=== PATIENT | female | born 1965 | race Caucasian/White ===

== ENCOUNTER 2021-01-29 12:51 | Emergency (ER) | payer OTHER ==
[~2021-01-29] VITALS: Ht 165.1 cm; Wt 50.0 kg
[2021-01-29] MEDS ORDERED: IV NORMAL SALINE 1,000ML 1,000 ML IV ONE (13:30)
--- NOTE | 2021-01-29 13:39 | PHYS DOC ---
General Adult EDM: Chief Complaint: Body aches HPI: HPI: 55-year-old female presents emergency room with body aches, fatigue, and COVID- 19 exposure. Patient is not vaccinated. She came here from [place] and she has been around her uncle who just tested positive for COVID-19. Last 2 days, the patient is felt general fatigue, malaise, diffuse body aches. She feels like she might have had a fever, but has not measured one. She denies shortness of breath. She has an intermittent cough. She has had some nausea and vomiting. Review of Systems: Review of Systems: Constitutional: Fever, body aches, fatigue. Eyes: Denies change in visual acuity HENT: Denies nasal congestion or sore throat Respiratory: Cough without significant shortness of breath Cardiovascular: Denies chest pain or edema GI: Denies abdominal pain, nausea, vomiting, bloody stools or diarrhea : Denies dysuria Musculoskeletal: Denies back pain or joint pain Integument: Denies rash Neurologic: Denies headache, focal weakness or sensory changes Endocrine: Denies polyuria or polydipsia Lymphatic: Denies swollen glands Psychiatric: Denies depression or anxiety Current Medications: Current Meds: Current Medications Medications (Trade) Dose Ordered Sig/Oskar Start Time Stop Time Status Last Admin Dose Admin Sodium Chloride 1,000 ml @ 1,000 mls/hr 1X ONCE 01/29/21 13:30 01/29/21 14:29 UNV Physical Exam: PE: Constitutional: Well developed, well nourished, no acute distress, thin, non- toxic appearance. [] HENT: Normocephalic, atraumatic, bilateral external ears normal, oropharynx moist, no oral exudates, nose normal. [] Eyes: PERRLA, EOMI, conjunctiva normal, no discharge. [] Neck: Normal range of motion, no tenderness, supple, no stridor. [] Cardiovascular: Heart rate regular rhythm, no murmur [] Lungs & Thorax: Bilateral breath sounds clear to auscultation [] Abdomen: Bowel sounds normal, soft, no tenderness, no masses, no pulsatile masses. [] Skin: Warm, dry, no erythema, no rash. [] Back: No tenderness, no CVA tenderness. [] Extremities: No tenderness, no cyanosis, no clubbing, ROM intact, no edema. [] Neurologic: Alert and oriented X 3, normal motor function, normal sensory function, no focal deficits noted. [] Psychologic: Affect normal, judgement normal, mood normal. [] EKG: EKG: [] Radiology/Procedures: Radiology/Procedures: [] Impressions: XR CHEST 1V History: Reason: fever, possible COVID / Spl. Instructions: / History: Comparison: None. Findings: Subtle ill-defined mid and bibasilar opacities. Hyperinflation. No consolidation or pleural effusion. No pneumothorax. Normal heart size. Impression: 1. Subtle ill-defined mid and bibasilar opacities, may represent atelectasis although can be seen with viral pneumonia. Electronically signed by: Emerson Randall DO (01/29/2021 1:55 PM) [id number] DICTATED AND SIGNED BY: EMERSON RANDALL DO DATE: 01/29/21 1353 CC: SRAVAN FARRAR DO; PCP,UNKNOWN ~MTH0 0 Heart Score: C/O Chest Pain: N/A Risk Factors: Risk Factors: DM, Current or recent (<one month) smoker, HTN, HLP, family history of CAD, obesity. Risk Scores: Score 0 - 3: 2.5% MACE over next 6 weeks - Discharge Home Score 4 - 6: 20.3% MACE over next 6 weeks - Admit for Clinical Observation Score 7 - 10: 72.7% MACE over next 6 weeks - Early Invasive Strategies Course & Med Decision Making: Course & Med Decision Making Pertinent Labs and Imaging studies reviewed. (See chart for details) The patient's symptoms are consistent with COVID-19. We have swabbed her but the test will not come back for 24 to 72 hours. We will treat her as though she is positive for Covid. Her chest x-ray shows possible viral pneumonia. See official read for more details. The patient's labs are unremarkable. Her urinalysis is negative for infection. The patient has been able to maintain normal O2 sats on room air. I do not believe she requires admission at this time. I have provided her Covid precautions and instructions. If her condition worsens, she will return to the emergency room. She is stable for discharge at this time. [] Dragon Disclaimer: Dragmoshe Disclaimer: This electronic medical record was generated, in whole or in part, using a voice recognition dictation system. Departure Departure: Impression: Primary Impression: COVID-19 Disposition: 01 HOME / SELF CARE / HOMELESS Condition: STABLE Referrals: PCP,UNKNOWN (PCP) Additional Instructions: You have been tested for or diagnosed with COVID-19. It is an infection caused by a new type of coronavirus. COVID-19 will cause cold-like or mild flu symptoms in most. It can cause more severe symptoms like problems breathing in some. There is no treatment for COVID-19. The body will clear the infection over time. Self-care will help to ease discomfort. Steps to Take: Self-Care Rest as needed. Healthy habits may help you feel better. Steps include: Choose healthy foods including fruits and vegetables. Drink water throughout the day. Get plenty of sleep each night. If you smoke, try to quit. It may ease breathing. Avoid alcohol. Keep Others Healthy The virus can spread to others. Droplets are released every time you sneeze or cough. The droplets can get into the mouth, nose, or eyes of people near you and lead to infection. To lower the chances of spreading COVID-19 to others: Stay at home until your doctor has said it is safe to leave. If you tested positive this will mean staying isolated until both of the following are true: At least 7 days have passed since the start of illness. You are free of fever for at least 72 hours without the use of medicine. During this time: - Avoid public areas, events, or transportation. Do not return to work or school until your doctor has said it is safe to do so. - Call ahead if you need to go to a medical center. Let them know you may have COVID-19. It will help them guide you where to go. They may also ask you to wear a facemask when you come to the office. - If you call for emergency medical services, let them know you may have COVID- 19. While at home: - Try to avoid close contact with others. Stay about 6 feet away. - If possible, spend most of your time in a separate room from others. - Use a face mask if you will be in close contact with others such as sharing a room or vehicle. - Have someone wipe down common surfaces in the home. Use household coating mixer tender every day on areas like doorknobs, counters, or sinks. - Cough or sneeze into a tissue. Throw the tissue away right after use. If a tissue is not available, cough or sneeze into your elbow. - Wash your hands often. Wash them after sneezing or coughing. Use soap and water and wash for at least 20 seconds. Alcohol based hand dry cleaner apprentice can be used if soap and water is not available. - Do not prepare food for others. Avoid sharing personal items like forks, spoons, or toothbrushes. - Avoid close contact with pets while you are sick. There is no evidence of the virus passing to pets. This is a safety step until more is known about this virus. Isolation can be frustrating. Social interaction can help. Keep in touch with friends and family through phone and tech options. You can still interact with others in your home, just keep a safe distance of about 6 feet. Follow-up: Your doctors office will check in with you to see if there are any changes in your health. You may be asked to keep track of symptoms to share with them. They will also let you know when you are clear to be in public again. Problems to Look Out For: Contact your doctor if your recovery is not going as you expect. Get emergency care if you have problems such as: - Trouble breathing - Nonstop chest pain or pressure - Changes in awareness, confusion, or problems waking - Lips or face have bluish color - Worsening of symptoms If you think you have an emergency, call for emergency medical services right away. As taken from [facility] SRAVAN FARRAR DO Jan 29, 2021 13:39
--- NOTE | 2021-01-29 13:57 | RAD ---
XR CHEST 1V History: Reason: fever, possible COVID / Spl. Instructions: / History: Comparison: None. Findings: Subtle ill-defined mid and bibasilar opacities. Hyperinflation. No consolidation or pleural effusion. No pneumothorax. Normal heart size. Impression: 1. Subtle ill-defined mid and bibasilar opacities, may represent atelectasis although can be seen wi th viral pneumonia. Electronically signed by: Emerson Hope DO (01/29/2021 1:55 PM) [id number]
[2021-01-29 14:22] LABS: BASO % 0 % (0-3); EOS % 0 % (0-3); HEMATOCRIT 36.4 % (36.0-47.0); HEMOGLOBIN 12.6 g/dL (12.0-15.5); LYMPH # 0.8 x10^3/uL (1.0-4.8); LYMPH % 22 % (24-48); MEAN CORPUSCULAR HEMOGLOBIN 31 pg (25-35); MEAN CORPUSCULAR HGB CONC 35 g/dL (31-37); MEAN CORPUSCULAR VOLUME 89 fL (79-100); MONO # 0.7 x10^3/uL (0.0-1.1); MONO % 19 % (0-9); NEUT # 2.1 x10^3uL (1.8-7.7); NEUT % 59 % (31-73); PLATELET COUNT 300 x10^3/uL (140-400); RED CELL DISTRIBUTION WIDTH 13.5 % (11.5-14.5); WHITE BLOOD COUNT 3.6 x10^3/uL (4.0-11.0)
[2021-01-29 14:32] LABS: CALCIUM 8.4 mg/dL (8.5-10.1); CREATININE 0.9 mg/dL (0.6-1.0)
[2021-01-29 14:34] LABS: BILIRUBIN,URINE NEG (NEG); CLARITY,URINE CLEAR; COLOR,URINE YELLOW; GLUCOSE,URINE NEG (NEG)
[2021-01-29 14:35] LABS: NITRITE,URINE NEG (NEG); UROBILINOGEN,URINE 0.2 mg/dL (0.2 mg/dL)
[2021-01-29 14:38] LABS: BACTERIA,URINE MANY /HPF (0-FEW); GRANULAR CASTS,URINE OCC /HPF; SQUAMOUS EPITHELIAL CELL,UR MANY /LPF
[2021-01-29 14:38] LABS: ALBUMIN 4.2 g/dL (3.4-5.0); ALBUMIN/GLOBULIN RATIO 1.6 (1.0-1.7); TOTAL BILIRUBIN 0.4 mg/dL (0.2-1.0); TOTAL PROTEIN 6.8 g/dL (6.4-8.2)
[2021-01-29 15:00] VITALS: BP 105/67
--- NOTE | 2021-01-30 11:35 | NUR ---
Infection Prevention note: POSITIVE COVID-19 results rec'd from ED visit 01/29/2021. Notification attempted, call to [phone]. Message left requesting return call to [phone], verify for results.
== END 2021-01-29 15:00 | disposition home or self-care (01) ==
LOC: ER 12:51
DX: U07.1 COVID-19 (principal)
CPT/HCPCS: 71045; 80053; 81001; 85025; 87086; 96360; 99284; C9803; J7030; U0003